=== PATIENT | female | born 1970 | race Caucasian/White ===

== ENCOUNTER 2017-06-28 10:18 | Emergency (ER) | payer OTHER, SELFPAY ==
[2017-06-28 10:18] VITALS: BP 138/73; PULSE 108; RESP 20; TEMP 36.3; O2SAT 99; BMI 24.7
--- NOTE | 2017-06-28 10:31 | RAD_ITS ---
STUDY: X-RAY CHEST REASON FOR EXAM: Female, 46 years old. Nausea, vomiting, shortness of breath, cough TECHNIQUE: Single AP portable view of the chest. COMPARISON: None. FINDINGS: The lungs are clear and expanded. There is no demonstrated pleural abnormality. Normal size heart. Normal mediastinum and kassandra. Normal visualized pulmonary arteries. Normal visualized aortic arch and descending thoracic aorta. Normal visualized thoracic spine. Normal visualized ribs, clavicles, and shoulders. There is no demonstrated abnormality of the visualized soft tissue structures of the upper abdomen. RAD/Chest 1 View (Portable) IMPRESSION: No acute cardiopulmonary disease. Electronically Signed: Tarik Manriquez DO at 11:22 EDT , Service support ,
--- NOTE | 2017-06-28 10:32 | EKG12_ITS ---
Test Reason : SOB/BACK PAIN Blood Pressure : / mmHG Vent. Rate : 086 BPM Atrial Rate : 086 BPM P-R Int : 116 ms QRS Dur : 088 ms QT Int : 384 ms P-R-T Axes : 066 -11 057 degrees QTc Int : 459 ms Normal sinus rhythm with sinus arrhythmia Nonspecific ST abnormality Abnormal ECG Confirmed by ALCIRA FLORES, LIAT ([id number]), art editor EWELINA SERRA ([id number]) on 06/30/2017 1:48:06 PM Referred By: SHIVAM Confirmed By:LIAT ELI MD
--- NOTE | 2017-06-28 10:40 | ED.DCSUM_ITS ---
- ER Visit Summary Date of Service: 06/28/17 Chief Complaint: Flu History of Present Illness: The patient is a 46 F with flulike symptoms for 3 days. Her symptoms include nausea, vomiting, diarrhea. She also has chest and back pain and a cough with sputum. She is worried she is getting dehydrated. She denies fevers. She does have a history of a solitary kidney. 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 No urinary symptoms. Physical Examination: Vital signs unremarkable except for heart rate of 102. Afebrile. Appears uncomfortable but not toxic or in distress. Skin appears normal. Heart regular. Lungs show wheezing at the bases bilaterally. Abdomen soft and nontender. Extremities unremarkable. Test Results: EKG shows sinus rhythm at a rate of 86. No sign of acute ischemia or infarction. She has nonspecific ST and T-wave changes. Lab work and chest x-ray pending. Emergency Department Course and Treatment: Patient has signs and symptoms concerning for a viral syndrome. Because of her history of solitary kidney, I did treat her with a fluid bolus. She had Zofran. Because of her wheezing and smoking history she received a DuoNeb. Will check a chest x-ray. Patient also received Motrin for her back pain. Lab work unremarkable. BUN 20. CBC normal. Troponin normal. test negative. Chest x-ray showed no acute findings. Patient was reassessed. No further vomiting or diarrhea. Back pain improved. Patient likely has viral syndrome. Will prescribe short course of Zofran. Stay hydrated. Take Motrin for pain. We will give her a pocket prescription for doxycycline if her respiratory symptoms persist, she can start to take it after 1 week. Return if worse. Follow-up with primary care. Treatment Plan: As above Disposition: Discharged Impression: 1. Dehydration 2. Flulike illness This note was generated with [employer] software. It may contain incorrect words, spelling, and punctuation that were not noted in review of the chart prior to signing ED Disposition - Plan for ED Patient: Chief Complaint: Shortness of Breath Referrals: Mavis Costello MD [Primary Care Provider] -
[2017-06-28] MEDS: Ipratropium/Albuterol Sulfate 3 ML AMPUL.NEB INHALATION (10:44)
[2017-06-28 10:47] VITALS: PULSE 96; RESP 16
[2017-06-28 11:00] LABS: Absolute Lymphocyte Count 1.16 X10^3/ul (0.83-4.51); Absolute Neutrophil Count 4.1 X10^3/uL (2.0-7.7); Basophil# 0.02 X10^3/uL; Basophil% 0.3 % (0-1); Eosinophil# 0.11 X10^3/uL; Eosinophils% 1.9 % (0-5); Hematocrit 44.8 % (37-47); Hemoglobin 14.6 g/dl (12.0-15.0); Lymphocyte # 1.16 X10^3/ul (4.0); Lymphocyte % 19.8 % (19-41); Mean Corp Hgb Conc 32.6 g/gl (32-36); Mean Corpuscular Hgb 31.6 pg (27.0-32.0); Mean Platelet Vol. 10.4 fl (6.2-12.0); Monocyte% 8.5 % (0-10); Neutrophil # 4.07 X10^3/uL (2.7-7.7); Neutrophil % 69.5 % (47-70); Platelet Count 163 K/mm3 (150-450); RBC Distribution Width CV 13.5 % (11.6-14.6); RBC Distribution Width SD 48.6 fl (35.1-43.9); Red Blood Count 4.62 M/mm3 (4.2-5.4); White Blood Count 5.9 K/mm3 (4.4-11.0)
[2017-06-28] MEDS: Ibuprofen 200 MG Tablet 800 MG PO (11:02)
[2017-06-28] MEDS: 0.9% Normal Saline 1,000 ML 1000 ML IV (11:03)
[2017-06-28] MEDS: Ondansetron 4 MG/2 ML Vial IV (11:03)
[2017-06-28 11:12] LABS: POSITIVE COUNT NO; POSITIVE DIFFERENTIAL NO; POSITIVE MORPHOLOGY NO
[2017-06-28 11:14] LABS: Anion Gap 7 (5-15); BUN 20 mg/dL (7-18); BUN/Creat Ratio 32.2 RATIO (10-20); Calcium,Total 8.5 mg/dL (8.5-10.1); Chloride 108 mmol/L (98-107); Creatinine, Serum 0.62 mg/dL (0.55-1.02); EST Glomerular Filtration Rate 110 mL/min (>60); Est Glom Filt Rate - Afr Amer 133 mL/min (>60); Estimated Creatinine Clearance 98.95 ml/min; Glucose 73 mg/dL (74-106); Potassium 3.6 mmol/L (3.5-5.1); Sodium Level 141 mmol/L (136-145)
[2017-06-28 11:18] LABS: Pregnancy, Serum, hCG Quali. NEGATIVE Negative (0-9 Nonpreg)
--- NOTE | 2017-06-28 11:53 | ED.DEP ---
ED Disposition - Plan for ED Patient: Chief Complaint: Shortness of Breath Instructions: ED Gastroenteritis Viral Prescriptions: Ondansetron [Zofran Odt] 4 mg PO Q8H PRN PRN #10 tab PRN Reason: Nausea Doxycycline Monohydrate 100 mg PO BID #20 cap Referrals: Mavis Costello MD [Primary Care Provider] -
[2017-06-28 12:27] VITALS: BP 118/97; PULSE 75; RESP 16; O2SAT 99
== END 2017-06-28 12:28 | disposition home or self-care (01) ==
PROVIDERS: Emergency Provider Emergency Medicine; Family Provider Family Medicine; PCP Family Medicine
DX: E86.0 Dehydration (principal); R11.2 Nausea with vomiting, unspecified; R19.7 Diarrhea, unspecified; R05 Cough; R07.9 Chest pain, unspecified; M54.9 Dorsalgia, unspecified; R06.2 Wheezing; F32.9 Major depressive disorder, single episode, unspecified; Z90.5 Acquired absence of kidney; F17.210 Nicotine dependence, cigarettes, uncomplicated; Z79.899 Other long term (current) drug therapy
CPT/HCPCS: 71045; 80048; 84484; 84703; 85025; 93005; 94640; 96374; 99284; J7030; A4216; J2405

== ENCOUNTER → 2017-11-06 19:02 | Outpatient (CLI) | payer OTHER, SELFPAY | PROVIDERS: Family Provider Family Medicine; PCP Family Medicine; Visit Provider Nurse Practitioner Adult Health | DX: R82.99 Other abnormal findings in urine (principal) | CPT/HCPCS: 87086; 87088 ==

== ENCOUNTER → 2022-12-23 | Outpatient (CLI) | payer SELFPAY ==
--- NOTE | 2022-12-23 16:36 | RAD_ITS ---
EXAM: XR LEFT HIP WITH PELVIS WHEN PERFORMED, 2 OR 3 VIEWS CLINICAL INDICATION: HIP PAIN TECHNIQUE: Two or three views of the left hip with pelvis when performed. COMPARISON: No relevant prior studies available. FINDINGS: BONES/JOINTS: Subtalar joint effusion or significant asymmetry. No displaced fracture. No destructive or sclerotic lesions. Note that overlapping bowel shadows may however obscure fine detail. Sacroiliac joint is unremarkable. No widening of the pubic symphysis. SOFT TISSUES: Multiple presumed tubal ligation clips are seen over the bilateral pelvis. No soft tissue swelling or gas. RAD/HIP, UNI W/ Pelvis 2-3 Views IMPRESSION: No acute findings in the pelvis or left hip. Electronically Signed: Lizy Aguero MD at 4:50 EDT ,
--- NOTE | 2022-12-23 16:38 | RAD_ITS ---
STUDY: X-RAY - LEFT FEMUR REASON FOR STUDY: Female, 52 years old. Pain. TECHNIQUE: 3 view(s) of the femur. COMPARISON: None. FINDINGS: Normal visualized femur. Surgical clips in the pelvis. Minimal soft tissue swelling lateral to the proximal thigh. RAD/Femur Min 2 Views IMPRESSION: Soft tissue swelling. No acute osseous abnormality. Electronically Signed: Godfrey Clifford MD at 13:40 EDT ,
== END | disposition home or self-care (01) ==
PROVIDERS: PCP Family Medicine; Referring Provider Chiropractor Orthopedic; Visit Provider Chiropractor Orthopedic
DX: M25.552 Pain in left hip (principal); M79.652 Pain in left thigh
CPT/HCPCS: 73502; 73552

== ENCOUNTER → 2023-06-23 | Outpatient (CLI) | payer SELFPAY ==
--- NOTE | 2023-06-23 15:30 | MRI_ITS ---
EXAM: MR CERVICAL SPINE WITHOUT INTRAVENOUS CONTRAST CLINICAL INDICATION: PAIN TECHNIQUE: Multiplanar and multisequence MR images of the cervical spine without intravenous contrast were performed. COMPARISON: No relevant prior studies available. FINDINGS: VERTEBRAE: Mild anterior listhesis of C4 on C5 likely related to underlying degenerative change. No bone marrow edema. Mild chronic appearing decrease in the C6 vertebral body height. Normal craniocervical junction and cervicothoracic junction. There is preservation of the normal cervical lordosis. SPINAL CORD: Abnormal T2 signal intensity within the cervical cord noted at the C3-C4 level related to compression from bone and joint changes at C3-4 as described below. Cord changes consistent with myelomalacia. Cervical cord is otherwise normal. SOFT TISSUES: Normal. No prevertebral soft tissue swelling. LYMPH NODES: Normal. There is no cervical adenopathy. DISCS/SPINAL CANAL/NEURAL FORAMINA: C2-C3: Broad-based disc protrusion and posterior ligamentous redundancy without significant compression of the thecal sac. Intact neural foramina. C3-C4: Prominent disc protrusion and posterior ligamentous redundancy results in moderate spinal stenosis. AP dimension of the canal is 5 mm. Prominent narrowing of the neural foramina noted bilaterally related to uncinate joint hypertrophy. C4-C5: Moderate disc space narrowing without disc herniation. No compression of the thecal sac. Mild to moderate narrowing of the right neural foramen related to uncinate joint hypertrophy. C5-C6: Moderate disc space narrowing broad-based disc osteophyte complex causes mild compression of the thecal sac. Moderate narrowing of the neural foramina related to uncinate joint hypertrophy. C6-C7: Moderate disc space narrowing. Broad-based disc protrusion causes mild spinal stenosis. Prominent narrowing of the neural foramina bilaterally related to uncinate joint hypertrophy. C7-T1: Disc space narrowing. No disc herniation. No spinal stenosis. Mild narrowing of the neural foramina related to mild bony hypertrophy. MRI/Spine Cervical (Routine) IMPRESSION: Significant C3-4 spinal stenosis associated with cord myelomalacia at the C3-4 level related to broad-based disc protrusion and posterior ligamentous redundancy. Additional findings detailed above. Electronically Signed: Henri Stover MD at 16:58 EDT ,
== END | disposition home or self-care (01) ==
PROVIDERS: PCP Family Medicine; Referring Provider Chiropractor Orthopedic; Visit Provider Chiropractor Orthopedic
DX: M99.01 Segmental and somatic dysfunction of cervical region (principal); M54.2 Cervicalgia
CPT/HCPCS: 72141